=== PATIENT | male | born 1940 | race Caucasian/White ===

== ENCOUNTER → 2021-07-08 | Outpatient (CLI) | payer MEDICARE, MEDICAID ==
[2015-12-08 13:30] VITALS: BP 172/86
[~2021-07-08] MED LIST: ALBU2.5V8 IH; ASPI325T11 PO; GLIP5TAB10 PO; GLIP5TAB22 PO; IPRA4AER IH; ISOS20TA6 PO; ISOS30TA PO; LEVO500T59 PO; LIRA0.6P2 SQ; LISI1TAB37 PO; METF10007 PO; METF500T16 PO; POTA20TA84 PO; PRED20TA PO; SIMV20TA18 PO
--- NOTE | 2021-07-09 14:17 | CARD ---
MR#: [id number] Date of Study: 07/08/2021 Ordering Physician: RACHID ENCARNACION, Referring Physician: RACHID ENCARNACION, Tech: Katarzyna Garrett [facility] APPROVED REPORT EXAM: Two-dimensional and M-mode echocardiogram with Doppler and color Doppler. Other Information Quality : AverageHR: 57bpm Rhythm : NSR INDICATION Cardiac Disease: CAD RISK FACTORS Hypertension Obesity Hyperlipidemia 2D DIMENSIONS RVDd3.8 (2.9-3.5cm)Left Atrium(2D)3.8 (1.6-4.0cm) IVSd1.4 (0.7-1.1cm)Aortic Root(2D)3.8 (2.0-3.7cm) LVDd4.2 (3.9-5.9cm)LVOT Diameter2.5 (1.8-2.4cm) PWd1.1 (0.7-1.1cm)LVDs3.1 (2.5-4.0cm) FS (%) 25.5 %SV39.9 ml LVEF(%)50.6 (>50%) Aortic Valve AoV Peak Sharad.109.9cm/sAoV VTI21.9cm AO Peak GR.4.8mmHgLVOT Peak Sharad.87.6cm/s AO Mean GR.2mmHgAVA (VMAX)3.84cm2 Mitral Valve MV E Jbtjhreb25.0cm/sMV DECEL CAUI800lb MV A Ygmfujhn98.3cm/sE/A Ratio0.5 Pulmonary Valve PV Peak Acelzhiw74.1cm/s Tricuspid Valve TR P. Cprvobxu603eg/sTR Peak Gr.17mmHg LEFT VENTRICLE The left ventricle is normal size. There is moderate concentric left ventricular hypertrophy. The lef t ventricular systolic function is mildly diminished. EF 45%. There is mild global hypokinesis. Septa l motion suggestive of prior sternotomy. Transmitral Doppler flow pattern is Grade I-abnormal relaxat ion pattern. RIGHT VENTRICLE The right ventricle is normal size. There is normal right ventricular wall thickness. The right ventr icular systolic function is normal. ATRIA The left atrium size is normal. The right atrium size is normal. The interatrial septum is intact wit h no evidence for an atrial septal defect or patent foramen ovale as noted on 2-D or Doppler imaging. AORTIC VALVE The aortic valve is mildly thickened but opens well. Doppler and Color Flow revealed no significant a ortic regurgitation. There is no significant aortic valvular stenosis. MITRAL VALVE The mitral valve is normal in structure and function. There is no evidence of mitral valve prolapse. There is no mitral valve stenosis. Doppler and Color-flow revealed mild mitral regurgitation. TRICUSPID VALVE The tricuspid valve is normal in structure and function. Doppler and Color Flow revealed mild tricusp id regurgitation. Estimated PAP 20-25 mmHg. There is no tricuspid valve stenosis. PULMONIC VALVE Doppler and Color Flow revealed mild pulmonic valvular regurgitation. There is no pulmonic valvular s tenosis. GREAT VESSELS The aortic root is mildly enlarged. The ascending aorta is mildly dilated. The IVC is normal in size and collapses >50% with inspiration. PERICARDIAL EFFUSION There is no evidence of significant pericardial effusion. Critical Notification Critical Value: No <Conclusion> The left ventricular systolic function is mildly diminished. EF 45%. There is mild global hypokinesis. Septal motion suggestive of prior sternotomy. There is moderate concentric left ventricular hypertrophy The ascending aorta is mildly dilated. Signed by : Rachid Encarnacion, Electronically Approved : 07/09/2021 14:16:59
== END ==
LOC: ECHO 08:38
PROVIDERS: ATTEND Internal Medicine Cardiovascular Disease
DX: I08.8 Other rheumatic multiple valve diseases (principal); I25.10 Atherosclerotic heart disease of native coronary artery without angina pectoris
CPT/HCPCS: 93306; C8929